=== PATIENT | male | born 1960 | race Caucasian/White ===

== ENCOUNTER 2021-01-07 22:29 | Emergency (ER) | payer BC, OTHER ==
[2021-01-07 22:36] VITALS: BP 130/81; PULSE 77; TEMP 97.9; BMI 43.0
[2021-01-08] MEDS ORDERED: POLYETHYLENE GLYCOL (HEALTHYLAX) 3350 17 GM PACKET PO ONE
== END 2021-01-08 00:39 | disposition home or self-care (01) ==
LOC: FER 22:29
DX: K59.00 Constipation, unspecified (principal)
CPT/HCPCS: 99283-25